=== PATIENT | male | born 1965 | race Caucasian/White ===

== ENCOUNTER 2017-07-03 20:33 | Emergency (ER) | payer OTHER ==
[2017-07-03 21:20] VITALS: BP 0/0
--- NOTE | 2017-07-04 00:25 | ED ---
Marcella Corral Rebecca, scribed for Kiki Arteaga MD on 07/03/17 at 2108 . 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 Pt had surgery in [place] on 06/21, about 2 weeks ago, during which he had a tumor removed and had a graft from his thigh and hand to make a new tongue. He was on tube feeding, and tonight he was sitting when he started spontaneously bleeding copious amounts from the mouth. His called EMS, who told her to lie him on his side, which she did, then he became unresponsive. Upon arrival, pt was unresponsive and in asystole. Pt was bleeding copious amounts of blood out of mouth, per EMS. They placed an IO, b/c an IV could not be obtained. EMS did ACLS protocol, and he was in asystole the whole time. EMS tried to announce the pt on scene, but family was resisting, so they continued with ACLS protocol. Pt arrived to ED, at least 1 hour after being down, with the pt still in asystole. In the ED, on exam, pt was bleeding from the neck and mouth, pupils are fixed and dilated, and he has a hard mass in his neck. Pt pronounced in the ED at 2036. Family present, including his and brother. All history obtained from EMS and medical records. Level 5 caveat due to extremis. - History of Current Complaint Stated Complaint: CARDIAC ARREST Hx Obtained From: EMS Hx From Patient Unobtainable Due To: Extremis Down-time Before Advanced Life Support Initiated: Down-time before ALS initiated : - 30 minutes - Prehospital Findings Circulation/Rhythm: Asystole Disability/Neurologic: Unresponsive - Prehospital Intervention Circulation/Rhythm: Epinephrine: - Prehospital Response Circulation/Rhythm: Asystole - Additional Pertinent History Primary Care Physician: [id number] - Allergies/Home Medications Allergies/Adverse Reactions: Allergies Allergy/AdvReac Type Severity Reaction Status Date / Time Tetanus Toxoids Allergy Severe Swelling Verified 04/11/17 12:03 Penicillins [PCN] Allergy Unknown Unknown Verified 04/11/17 12:03 Reaction Details Honey Allergy THROAT Verified 04/11/17 12:03 SWELLING ENVIRONMENT/SEASONAL HAYFEVER Allergy SOB, ITCHY Uncoded 04/11/17 12:03 SCRATCHY THROAT, RED RASHY RUNNY RASH, PEACHES Allergy THROAT Uncoded 04/11/17 12:03 SWELLS, ITCHY - Past Medical History Past Medical History: Other: - Head and neck CA, HTN, HLD, Heart murmur - Family History Family History: Unobtainable Due to Extremis - Social History Social History: Unobtainable Due to Extremis - Review of Systems Review of Systems: Unobtainable Due to Extremis - Unrepsonsive and in asystole Physical Examination - Physical Examination Completion Of Physical Exam Limited Due To: Extremis Resuscitation Termination Time: 20:37 Resuscitation: Unsuccessful - ED Findings Circulation/Rhythm: Asystole Disability/Neurological: Unresponsive - ED Additional Pertinent Findings Additional Pertinent Findings Comment: Bleeding from the neck & mouth,pupils fixed and dilated, hard mass in neck Cardiac Resus. 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 Pt had surgery in [place] on 06/21, about 2 weeks ago, during which he had a tumor removed and had a graft from his thigh and hand to make a new tongue. He was on tube feeding, and tonight he was sitting when he started spontaneously bleeding copious amounts from the mouth. His called EMS, who told her to lie him on his side, which she did, then he became unresponsive. Upon arrival, pt was unresponsive and in asystole. Pt was bleeding copious amounts of blood out of mouth, per EMS. They placed an IO, b/c an IV could not be obtained. EMS did ACLS protocol, and he was in asystole the whole time. EMS tried to announce the pt on scene, but family was resisting, so they continued with ACLS protocol. Pt arrived to ED, at least 1 hour after being down, with the pt still in asystole. In the ED, on exam, pt was bleeding from the neck and mouth, pupils are fixed and dilated, and he has a hard mass in his neck. Pt pronounced in the ED at 2036. Family present, including his and brother. Level 5 caveat due to extremis. Discussed pt with Dr. Elio Joseph who accepts and he is now an CA patient. - Diagnoses Provider Diagnoses: Cardiac arrest During the Visit The Following Alert/Code Occurred: ABC Alert - 2018 - Provider Notifications Discussed Care Of Patient With: Elio Joseph Time Discussed With Above Provider: 21:13 Instructed by Provider To: Other - Accepts the pt - he is now a ME case Discharge - Discharge Plan Condition: Disposition: Referrals: Joseline Leary MD [Primary Care Provider] - The documentation as recorded by the Marcella duvall Rebecca accurately reflects the service I personally performed and the decisions made by me, Kiki Arteaga MD.
== END 2017-07-04 00:26 | disposition expired ==
LOC: ED 20:33
DX: I46.9 Cardiac arrest, cause unspecified (principal)
CPT/HCPCS: 99285